=== PATIENT | female | born 1930 | race Caucasian/White ===

== ENCOUNTER 2017-12-01 13:51 | Inpatient (IN) | payer MEDICARE ==
[2017-12-01] MEDS ORDERED: AMLODIPINE PO (14:57)
[2017-12-01] MEDS ORDERED: FURO80TA3 PO (14:57)
[2017-12-01] MEDS ORDERED: MIRT15TA3 PO (14:57)
[2017-12-01] MEDS ORDERED: VALSARTAN PO (14:57)
[2017-12-01] MEDS ORDERED: LEVO100T5 PO (14:57)
[2017-12-01] MEDS ORDERED: CHOL4POW2 PO (14:57)
[2017-12-01] MEDS ORDERED: OLAN5TAB5 PO (14:57)
[2017-12-01] MEDS ORDERED: QUET25TA5 PO (14:57)
[2017-12-01] MEDS ORDERED: LOPE2TAB56 PO (14:57)
[2017-12-01] MEDS ORDERED: ACET500T68 PO (14:57)
[2017-12-01] MEDS ORDERED: OLAN5TAB9 PO (14:57)
[2017-12-01] MEDS ORDERED: FURO40TA4 PO (14:57)
[2017-12-01] MEDS ORDERED: POTA20TA4 PO (14:57)
[2017-12-01] MEDS ORDERED: HYDROCHLOROTHIAZIDE PO (14:57)
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
[2017-12-01] MEDS ORDERED: METHYL SALICYLATE/MENTHOL TOPICAL OINTMENT 29GM TUBE. TP PRN (22:45)
[2017-12-01] MEDS ORDERED: MAGNESIUM HYDROXIDE 2,400 MG/30 ML ORAL.SUSP. PO PRN (22:45)
[2017-12-01] MEDS ORDERED: MAG HYDROX/AL HYDROX/SIMETH 30 ML ORAL.SUSP PO PRN (22:45)
[2017-12-01] MEDS ORDERED: ACETAMINOPHEN 325 MG TABLET PO PRN (22:45)
[2017-12-01] MEDS ORDERED: VALS80TA3 PO (23:08)
[2017-12-01] MEDS ORDERED: AMLO2.5T PO (23:08)
[2017-12-01] MEDS ORDERED: MIRTAZAPINE 7.5 MG TABLET. PO SCH (23:30)
[2017-12-02 06:04] VITALS: BP 116/68
[2017-12-02] MEDS ORDERED: ACETAMINOPHEN 500 MG TABLET PO PRN (07:45)
[2017-12-02] MEDS ORDERED: LEVOTHYROXINE 100 MCG TABLET PO SCH (08:00)
[2017-12-02 08:38] LABS: BASO # 0.1 x10^3/uL (0.0-0.2); BASO % 1 % (0-3); EOS # 0.1 x10^3/uL (0.0-0.7); EOS % 1 % (0-3); HEMATOCRIT 41.2 % (36.0-47.0); HEMOGLOBIN 13.6 g/dL (12.0-15.5); LYMPH # 1.1 x10^3/uL (1.0-4.8); LYMPH % 15 % (24-48); MEAN CORPUSCULAR HEMOGLOBIN 29 pg (25-35); MEAN CORPUSCULAR HGB CONC 33 g/dL (31-37); MEAN CORPUSCULAR VOLUME 89 fL (79-100); MONO # 0.5 x10^3/uL (0.0-1.1); MONO % 6 % (0-9); NEUT # 5.7 x10^3uL (1.8-7.7); NEUT % 77 % (31-73); PLATELET COUNT 203 x10^3/uL (140-400); RED BLOOD COUNT 4.64 x10^6/uL (3.50-5.40); RED CELL DISTRIBUTION WIDTH 16.4 % (11.5-14.5); WHITE BLOOD COUNT 7.4 x10^3/uL (4.0-11.0)
[2017-12-02 08:47] LABS: ALBUMIN 2.8 g/dL (3.4-5.0); CALCIUM 8.6 mg/dL (8.5-10.1); CREATININE 2.6 mg/dL (0.6-1.0); GFR 17.5; MAGNESIUM 1.7 mg/dL (1.8-2.4); POTASSIUM 4.4 mmol/L (3.5-5.1); TOTAL BILIRUBIN 0.3 mg/dL (0.2-1.0); TOTAL PROTEIN 5.7 g/dL (6.4-8.2)
[2017-12-02] MEDS ORDERED: LOSARTAN 50 MG TABLET. PO SCH (09:00)
[2017-12-02] MEDS ORDERED: amLODIPine BESYLATE 2.5 MG TABLET PO SCH (09:00)
[2017-12-02] MEDS ORDERED: CHOLESTYRAMINE/ASPARTAME 4 GM PACKET PO SCH (09:00)
--- NOTE | 2017-12-02 09:15 | NUR ---
Behavior Intervention Response and Plan: BIRP Note: Behavior: Assumed Care of patient, patient located in Day Room at shift change. Patient exhibited the following behavior Disorganized, Resistive, Demanding. Brief assessment on rounds of vital signs, medication needs, lab studies, and pain. Treatment plan problems 1 & 2. Intervention: Patient assessed and the following interventions initiated safety checks 15 Minute Checks Cognitive Assessment , Head to toe Assessment , Medications. Response: After interactions and interventions patient responded in the following manner, Calm , Appropriate ,Compliant. Continue to assess behaviors and condition will continue to monitor throughout the shift as needed. Patient educated on ADL's, and hand hygiene. 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 Continue to assess patient for changes in above assessment. Monitor for medication needs, pain, and safety concerns. Hourly rounding performed to ensure safe environment.
[2017-12-02 10:36] LABS: THYROID STIM HORMONE (TSH) 59.56 uIU/mL (0.358-3.740)
[2017-12-02 15:45] VITALS: BP 132/81
[2017-12-02] MEDS ORDERED: QUEtiapine 25 MG TABLET. PO SCH (16:00)
[2017-12-02 17:07] LABS: HEMOGLOBIN A1C 5.2 % (4.8-5.6); T3 TOTAL 32 ng/dL (71-180); THYROXINE 4.6 ug/dL (4.5-12.0)
--- NOTE | 2017-12-02 18:48 | EKG ---
[address] [address] Test Date: 2017-12-02 Test Time: 18:43:41 Pat Name: JAH DANIELS Department: Room: [address] [place] [address] Gender: F Printing Press Operator: JULIANNA : 1930 Requested By: BERNICE MEDEL Order Number: [id number] Reading MD: Tremayne Nayak MD Measurements Intervals [place] Rate: 88 P: 82 HI: 150 QRS: 81 QRSD: 102 T: 74 QT: 406 QTc: 495 Interpretive Statements SINUS RHYTHM Electronically Signed On 12-04-2017 10:02:01 CONFIGURATION MANAGEMENT ARCHITECT by Tremayne Nayak MD
[2017-12-02 18:54] LABS: BASO # 0.1 x10^3/uL (0.0-0.2); BASO % 1 % (0-3); EOS % 1 % (0-3); HEMATOCRIT 38.7 % (36.0-47.0); HEMOGLOBIN 12.8 g/dL (12.0-15.5); LYMPH % 14 % (24-48); MEAN CORPUSCULAR HEMOGLOBIN 29 pg (25-35); MEAN CORPUSCULAR HGB CONC 33 g/dL (31-37); MEAN CORPUSCULAR VOLUME 88 fL (79-100); MONO # 0.5 x10^3/uL (0.0-1.1); MONO % 6 % (0-9); NEUT # 5.7 x10^3uL (1.8-7.7); NEUT % 78 % (31-73); PLATELET COUNT 212 x10^3/uL (140-400); RED BLOOD COUNT 4.41 x10^6/uL (3.50-5.40); RED CELL DISTRIBUTION WIDTH 15.8 % (11.5-14.5); WHITE BLOOD COUNT 7.3 x10^3/uL (4.0-11.0)
--- NOTE | 2017-12-02 18:56 | PDOC ---
Exam Note: Rodríguez Note: Please also refer to the separate dictated note~for this date of service dictated separately.~Patient seen individually. Discussed the patient with Nursing staff reviewed the chart.~Reviewed interim history and current functioning. Reviewed vital signs,~Labs/ Radiology~and current medications noted below. Continue current treatment with the changes noted in the dictated addendum note Assessment: Vital Signs: Vital Signs Date Time Temp Pulse Resp B/P (MAP) Pulse Ox O2 Delivery O2 Flow Rate FiO2 12/02/17 15:45 97.6 86 18 132/81 (98) 97 I&O Intake and Output 12/02/17 07:00 Intake Total 0 ml Balance 0 ml Intake Oral 0 ml Labs: Laboratory Tests Test 12/02/17 06:57 12/02/17 18:16 White Blood Count 7.4 x10^3/uL (4.0-11.0) Red Blood Count 4.64 x10^6/uL (3.50-5.40) Hemoglobin 13.6 g/dL (12.0-15.5) Hematocrit 41.2 % (36.0-47.0) Mean Corpuscular Volume 89 fL (79-100) Mean Corpuscular Hemoglobin 29 pg (25-35) Mean Corpuscular Hemoglobin Concent 33 g/dL (31-37) Red Cell Distribution Width 16.4 % (11.5-14.5) H Platelet Count 203 x10^3/uL (140-400) Neutrophils (%) (Auto) 77 % (31-73) H Lymphocytes (%) (Auto) 15 % (24-48) L Monocytes (%) (Auto) 6 % (0-9) Eosinophils (%) (Auto) 1 % (0-3) Basophils (%) (Auto) 1 % (0-3) Neutrophils # (Auto) 5.7 x10^3uL (1.8-7.7) Lymphocytes # (Auto) 1.1 x10^3/uL (1.0-4.8) Monocytes # (Auto) 0.5 x10^3/uL (0.0-1.1) Eosinophils # (Auto) 0.1 x10^3/uL (0.0-0.7) Basophils # (Auto) 0.1 x10^3/uL (0.0-0.2) Sodium Level 145 mmol/L (136-145) Potassium Level 4.4 mmol/L (3.5-5.1) Chloride Level 112 mmol/L (98-107) H Carbon Dioxide Level 17 mmol/L (21-32) L Anion Gap 16 (6-14) H Blood Urea Nitrogen 40 mg/dL (7-20) H Creatinine 2.6 mg/dL (0.6-1.0) H Estimated GFR (Cockcroft-Gault) 17.5 BUN/Creatinine Ratio 15 (6-20) Glucose Level 59 mg/dL (70-99) L Hemoglobin A1c 5.2 % (4.8-5.6) Calcium Level 8.6 mg/dL (8.5-10.1) Magnesium Level 1.7 mg/dL (1.8-2.4) L Iron Level 32 ug/dL (50-170) L Total Iron Binding Capacity 194 ug/dL (250-450) L Iron Saturation 16 % (15-34) Total Bilirubin 0.3 mg/dL (0.2-1.0) Aspartate Amino Transferase (AST) 24 U/L (15-37) Alanine Aminotransferase (ALT) 20 U/L (14-59) Alkaline Phosphatase 82 U/L (46-116) Total Protein 5.7 g/dL (6.4-8.2) L Albumin 2.8 g/dL (3.4-5.0) L Albumin/Globulin Ratio 1.0 (1.0-1.7) Triglycerides Level 139 mg/dL (0-150) Cholesterol Level 190 mg/dL (0-200) LDL Cholesterol, Calculated 108 mg/dL (0-100) H VLDL Cholesterol, Calculated 27 mg/dL (0-40) Non-HDL Cholesterol Calculated 135 mg/dL (0-129) H HDL Cholesterol 55 mg/dL (40-60) Cholesterol/HDL Ratio 3.0 Thyroid Stimulating Hormone (TSH) 59.560 uIU/mL (0.358-3.740) Thyroxine (T4) 4.6 ug/dL (4.5-12.0) Total Triiodothyronine (TT3) 32 ng/dL (71-180) L Rapid Plasma Reagin Pending Glucose (Fingerstick) 123 mg/dL (70-99) H Current Medications: Meds: Current Medications Acetaminophen (Tylenol) 650 mg PRN Q6HRS PRN PO PAIN / TEMP; Start 12/01/17 at 22:45; Stop 12/02/17 at 07:51; Status DC Multi-Ingredient Ointment (Analgesic [place]) 1 tammy PRN QID PRN TP MUSCLE PAIN; Start 12/01/17 at 22:45 Al Hydroxide/Mg Hydroxide (Mylanta Plus Xs) 15 ml PRN AFTMEALHC PRN PO DYSPEPSIA; Start 12/01/17 at 22:45 Magnesium Hydroxide (Milk Of Magnesia) 2,400 mg PRN QHS PRN PO CONSTIPATION; Start 12/01/17 at 22:45 Mirtazapine (Remeron) 7.5 mg HS PO ; Start 12/01/17 at 23:30 Olanzapine (ZyPREXA ZYDIS) 2.5 mg PRN BID PRN PO ANXIETY / AGITATION; Start 11/06 at 23:30 Olanzapine (ZyPREXA ZYDIS) 2.5 mg DAILY16 PO Last administered on 12/02/17at 16: 49; Start 12/02/17 at 16:00 Quetiapine Fumarate (SEROquel) 25 mg 1600 PO Last administered on 12/02/17at 16: 49; Start 12/02/17 at 16:00 Acetaminophen (Tylenol) 500 mg PRN Q4HRS PRN PO PAIN / TEMP; Start 12/02/17 at 07:45 Amlodipine Besylate (Norvasc) 2.5 mg DAILY PO Last administered on 12/02/17at 09 :00; Start 12/02/17 at 09:00 Levothyroxine Sodium (Synthroid) 100 mcg DAILYAC PO Last administered on at 09:00; Start 12/02/17 at 08:00 Cholestyramine Resin (Questran Light) 4 gm BID PO Last administered on at 09:00; Start 12/02/17 at 09:00 Losartan Potassium (Cozaar) 50 mg DAILY PO Last administered on 12/02/17at 09:00 ; Start 12/02/17 at 09:00 Active Scripts Active Reported Diovan (Valsartan) 80 Mg Tablet 80 Mg PO DAILY Amlodipine Besylate 2.5 Mg Tablet 2.5 Mg PO DAILY Levothyroxine Sodium 100 Mcg Tablet 100 Mcg PO DAILYAC Olanzapine 5 Mg Tablet 2.5 Mg PO PRN BID Zyprexa Zydis (Olanzapine) 5 Mg Tab.rapdis 2.5 Mg PO DAILY16 Seroquel (Quetiapine Fumarate) 25 Mg Tablet 25 Mg PO 1600 [Norvasc/valsart/HCTZ] 1 Tab PO Cholestyramine Packet (Cholestyramine (With Sugar)) 4 Gm Powd.pack 4 Gm PO BID Mirtazapine 15 Mg Tablet 7.5 Mg PO HS Acetaminophen 500 Mg Tablet 500-1,000 Mg PO PRN Q4HRS PRN I have reviewed the current psychotropics carefully including drug interactions. Risk benefit ratio favors no change other than as noted in my dictated progress note. Diagnosis: Problems: (1) Anxiety disorder (2) Dementia in Alzheimer's disease with delusions (3) Dementia in Alzheimer's disease with depression (4) Dementia, vascular, with delusions (5) Dementia, vascular, with depression APPLE CASIANO MD Dec 02, 2017 18:56
[2017-12-02 19:02] LABS: ALBUMIN 2.9 g/dL (3.4-5.0); ALBUMIN/GLOBULIN RATIO 0.9 (1.0-1.7); CALCIUM 8.9 mg/dL (8.5-10.1); CREATININE 3.3 mg/dL (0.6-1.0); GFR 13.3; MAGNESIUM 1.5 mg/dL (1.8-2.4); POTASSIUM 4.3 mmol/L (3.5-5.1); TOTAL BILIRUBIN 0.4 mg/dL (0.2-1.0); TOTAL PROTEIN 6.1 g/dL (6.4-8.2)
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
--- NOTE | 2017-12-02 19:28 | NUR ---
Transition Record was faxed to follow-up provider with the following elements: Reason for admission, procedures, tests, principal diagnosis, pending studies, patient instructions, 12/06 contact information for unit, phone number to obtain pending test results, plan for follow-up care, physician follow-up, advanced directive information, and medication list with dose, duration and instructions. This information was included in the following documents: History and physical, lab results, study results, progress notes, social work planning form, DC instruction form, patient visit summary, and medication reconciliation form. Date & time record transferred: [id number] December 2017 Record sent to: ICU Record discussed with/ report given to: FEDERICO Nava
--- NOTE | 2017-12-02 19:31 | NUR ---
Patient ambulated to day room after supper and sat down. She was witnessed to slump over and displayed altered mental status. Patient was assisted to the couch and laid down with her legs elevated, vital signs were obtained. Manual BP was 68/46, rapid response was called at approximately 18:20. Per rapid response protocols, IV fluids were initiated, EKG obtained, and labs drawn. Several minutes after interventions were initiated, VS were improved. Patient was transferred to ICU. MD notified of patient's situation. Patient's DPOA was called and informed.
--- NOTE | 2017-12-04 01:20 | DS ---
DATE OF DISCHARGE: 12/02/2017 DISCHARGE SUMMARY/PSYCHIATRIC PROGRESS NOTE REASON FOR ADMISSION: Please refer to the admission history for details. Briefly, the patient is an 86-year-old female, referred to us from [facility] by her primary care physician on account of increasing agitation, aggression towards peers and , psychotic within the context of her dementia. She is medically stabilized, psychiatrically unstable, referred for inpatient psychiatric stabilization. SIGNIFICANT FINDINGS AND CLINICAL COURSE: Following admission, the patient was seen daily individually by myself, medically per Dr. Lee/Dr. Sales. In fact, I saw her on 12/01/2017 when she was quite confused, paranoid with marked mood lability. Towards the evening, blood pressure was low and she was transferred to the ICU per Dr. Muro. CONDITION AT DISCHARGE: Unchanged. No CV, , pulmonary, eye, ENT system symptoms on review. Reliability is poor. MENTAL STATUS EXAM: Oriented to herself. Insight, judgment, recent and remote memory, attention, concentration, fund of knowledge poor, consistent with her diagnosis. IMPRESSION: Major neurocognitive disorder, Alzheimer vascular with depression, delusion, behavioral disturbance; anxiety disorder, unspecified; impulse control disorder, unspecified; status post pneumonia. Rest unchanged from admission. DISCHARGE MEDICATIONS: Please refer to the MRAD. Once she is medically stable in the ICU consequent to her hypotension, we would be happy to have her back on our unit to stabilize her from a psychiatric standpoint. APPLE CASIANO MD DR: NITA/jolanta JOB#: [id number] / [id number]
--- NOTE | 2017-12-04 01:46 | HP ---
ADMIT DATE: PSYCHIATRIC ADMISSION HISTORY/EVALUATION I met with the patient on the evening of 12/02/2017 for part of this evaluation. This note covers elements not covered in my initial note of 12/02/2017. IDENTIFYING DATA: The patient is an 86-year-old female with worsening dementia, initially admitted to [facility] for medical stabilization. She had been aggressive to peers and , attempts to bite, scratch and hit, has been quite delusional within the context of her dementia; referred for inpatient psychiatric stabilization by her primary care physician. CHIEF COMPLAINT: "No". HISTORY OF PRESENT ILLNESS: The patient has a history of dementia and Alzheimer's, vascular type. She has been residing at the [facility], was getting aggressive towards her and other peers at the [facility]; attempting to bite, scratch and hit. She was sent to [facility] to stabilize medically. Behaviors persisted, resulting in this referral. She has had some sleep and appetite changes. No clear history of bipolar disorder, suicidal or homicidal ideation. PAST PSYCHIATRIC HISTORY: As above. PAST MEDICAL HISTORY: Status post pneumonia, hypertension, history of follicular cancer, hypothyroidism, osteoarthritis and chronic diarrhea. Diet is regular. ALLERGIES: FOSAMAX AND SULFA. FAMILY HISTORY: Noncontributory. SOCIAL HISTORY: No alcohol, drug abuse, physical sexual or elder abuse history is noted. Not known to be a perpetrator. MENTAL STATUS EXAMINATION: Oriented to herself. Insight, judgment, recent and remote memory, attention, concentration and fund of knowledge poor, consistent with her diagnosis. IMPRESSION: Major neurocognitive disorder; Alzheimer's, vascular with depression, delusion and behavioral disturbance. Rest as above. PLAN: Admit to geropsychiatry unit at [facility]. I will see her daily from a psychiatric standpoint. Medical followup per Dr. Lee/Dr. Sales. In fact, by the time of this dictation, the patient was noted to have marked hypotension and has been transferred to the ICU per Dr. Muro, especially given her past history of pneumonia and sepsis recently. The patient has been admitted and discharged the same day, and we would be happy to have her back on the unit if clinically still indicated once she is medically stable. APPLE CASIANO MD DR: NITA/jolanta JOB#: [id number] / [id number]
== END 2017-12-02 18:45 | disposition short-term general hospital (02) | DRG 57 ==
LOC: GEROPSY 22:05
PROVIDERS: ADMIT Psychiatry & Neurology Psychiatry; ATTEND Psychiatry & Neurology Psychiatry
DX: G30.9 Alzheimer's disease, unspecified (principal); F01.51 Vascular dementia, unspecified severity, with behavioral disturbance; F02.81 Dementia in other diseases classified elsewhere, unspecified severity, with behavioral disturbance; F32.9 Major depressive disorder, single episode, unspecified; F22 Delusional disorders; E03.9 Hypothyroidism, unspecified; F41.9 Anxiety disorder, unspecified; F63.9 Impulse disorder, unspecified; I12.9 Hypertensive chronic kidney disease with stage 1 through stage 4 chronic kidney disease, or unspecified chronic kidney disease; M19.90 Unspecified osteoarthritis, unspecified site; K52.9 Noninfective gastroenteritis and colitis, unspecified; N18.9 Chronic kidney disease, unspecified; Z66 Do not resuscitate; E87.6 Hypokalemia; Z88.2 Allergy status to sulfonamides; Z88.8 Allergy status to other drugs, medicaments and biological substances; Z87.01 Personal history of pneumonia (recurrent)
CPT/HCPCS: 36415; 80053; 80061; 82306; 82607; 82947; 83036; 83540; 83550; 83735; 84436; 84443; 84480; 85025; 86593; 93005

== ENCOUNTER 2017-12-02 18:40 | Inpatient (IN) | payer MEDICARE ==
[2017-12-02] VITALS (7 sets, daily range): BP systolic 100–110; BP diastolic 42–58
[~2017-12-02] VITALS: Ht 157.5 cm; Wt 47.8 kg
[~2017-12-02 18:40] MED LIST: ACET500T68 PO; AMLO2.5T PO; AMLODIPINE PO; CHOL4POW2 PO; FURO40TA4 PO; FURO80TA3 PO; HYDROCHLOROTHIAZIDE PO; LEVO100T5 PO; LOPE2TAB56 PO; MIRT15TA3 PO; OLAN5TAB5 PO; OLAN5TAB9 PO; POTA20TA4 PO; QUET25TA5 PO; VALS80TA3 PO; VALSARTAN PO
[2017-12-02] MEDS ORDERED: MAGNESIUM HYDROXIDE 2,400 MG/30 ML ORAL.SUSP. PO PRN (20:00)
[2017-12-02] MEDS ORDERED: 0.9 % SODIUM CHLORIDE 10 ML DISP.SYRIN. IV PRN (20:00)
[2017-12-02] MEDS: IV 1/2 NORMAL SALINE 1,000 ML IV SCH (21:12)
[2017-12-02] MEDS: DOCUSATE SODIUM 100 MG CAPSULE PO SCH (21:28)
--- NOTE | 2017-12-02 23:08 | EKG ---
[address] [address] Test Date: 2017-12-02 Test Time: 23:03:55 Pat Name: JAH DANIELS Department: Room: [place] [address] Gender: F Network Systems Administrator: AUBREE : 1930 Requested By: BERNICE MEDEL Order Number: [id number] Reading MD: Tremayne Nayak MD Measurements Intervals [place] Rate: 82 P: 39 CO: 162 QRS: 88 QRSD: 118 T: 83 QT: 412 QTc: 485 Interpretive Statements SINUS RHYTHM RBBB Electronically Signed On 12-05-2017 10:27:11 TOOTH INSPECTOR by Tremayne Nayak MD
--- NOTE | 2017-12-02 23:35 | RAD ---
EXAM: Chest one view. HISTORY: Syncope. COMPARISON: None. FINDINGS: A frontal view of the chest is obtained. A right-sided port catheter has its tip in the superior cavoatrial junction. There are surgical clips at the base of the neck. There are no confluent infiltrates. There is mild atelectasis in the costophrenic angles. There is no pneumothorax or pleural effusion. The heart is not enlarged. There are atherosclerotic calcifications of the aorta. IMPRESSION: 1. No confluent infiltrates. Electronically signed by: Mali Márquez MD (12/02/2017 11:31 PM) [id number]
[2017-12-03] VITALS (13 sets, daily range): BP systolic 93–117; BP diastolic 40–72
[2017-12-03 02:04] LABS: BILIRUBIN,URINE MOD (NEG); CLARITY,URINE HAZY; GLUCOSE,URINE NEG (NEG)
[2017-12-03 02:05] LABS: NITRITE,URINE NEG (NEG); UROBILINOGEN,URINE 0.2 mg/dL (0.2 mg/dL)
[2017-12-03 02:06] LABS: BACTERIA,URINE 0 /HPF (0-FEW); COLOR,URINE AMBER; SQUAMOUS EPITHELIAL CELL,UR FEW /LPF
[2017-12-03 05:24] LABS: BASO # 0.1 x10^3/uL (0.0-0.2); BASO % 1 % (0-3); EOS # 0.1 x10^3/uL (0.0-0.7); EOS % 1 % (0-3); HEMATOCRIT 31.2 % (36.0-47.0); HEMOGLOBIN 10.7 g/dL (12.0-15.5); LYMPH # 1.3 x10^3/uL (1.0-4.8); LYMPH % 19 % (24-48); MEAN CORPUSCULAR HEMOGLOBIN 30 pg (25-35); MEAN CORPUSCULAR HGB CONC 34 g/dL (31-37); MEAN CORPUSCULAR VOLUME 87 fL (79-100); MONO # 0.6 x10^3/uL (0.0-1.1); MONO % 9 % (0-9); NEUT # 4.6 x10^3uL (1.8-7.7); NEUT % 70 % (31-73); PLATELET COUNT 159 x10^3/uL (140-400); RED CELL DISTRIBUTION WIDTH 15.9 % (11.5-14.5); WHITE BLOOD COUNT 6.6 x10^3/uL (4.0-11.0)
[2017-12-03 05:31] LABS: CREATININE 2.5 mg/dL (0.6-1.0); GFR 18.3
[2017-12-03] MEDS: DOCUSATE SODIUM 100 MG CAPSULE PO SCH (08:56)
[2017-12-03] MEDS: IV 1/2 NORMAL SALINE 1,000 ML IV SCH (10:23)
--- NOTE | 2017-12-03 13:10 | PDOC1 ---
History of Present Illness Reason for Visit: Syncope History of Present Illness Pt was just admitted to the [facility] unit yesterday for dementia w/ behavioral disturbances. I saw her at about 1620 yesterday afternoon, please see H&P dated 12/02 for further details. After dinner, she became slumped over and had a low blood pressure, though she never lost consciousness. A rapid response was called, and pt was transferred to the ICU for further monitoring. After a small bolus of fluids pt's BP was back to normal and she was at her baseline. She has not had any episodes overnight. I suspect that she has had either a vasovagal episode or became hypotensive due to the medications given to her prior to dinner (Seroquel and Zyprexa). I cannot determine which is which; however, I do not recommend that she be given that combination again. We will adjust some of her BP meds to reduce risk of vagal response or orthostatic hypotension. Pt to be transferred back to [facility] unit today. Chief Complaint: Syncope Allergies: Coded Allergies: Sulfa (Sulfonamide Antibiotics) (Verified Allergy, Unknown, 12/01/17) alendronate sodium (Verified Allergy, Unknown, 12/01/17) Past Medical History Cardiac: Other (See H&P dated 12/02 for PMH, PSH< FH, SH) Review of Systems Review Of Systems ROS unreliable/unobtainable due to pt's dementia. Allergies: Coded Allergies: Sulfa (Sulfonamide Antibiotics) (Verified Allergy, Unknown, 12/01/17) alendronate sodium (Verified Allergy, Unknown, 12/01/17) Medications Current Medications Sodium Chloride (Normal Saline Flush) 3 ml PRN DAILY PRN IV AFTER MEDS AND BLOOD DRAWS; Start 12/02/17 at 20:00 Sodium Chloride 1,000 ml @ 75 mls/hr [id number] IV Last administered on at 10:23; Start 12/02/17 at 20:30; Stop 12/03/17 at 20:29 Docusate Sodium (Colace) 100 mg BID PO Last administered on 12/03/17at 08:56; Start 12/02/17 at 21:00 Magnesium Hydroxide (Milk Of Magnesia) 2,400 mg PRN Q12HR PRN PO CONSTIPATION; Start 12/02/17 at 20:00 Active Scripts Active Reported Diovan (Valsartan) 80 Mg Tablet 80 Mg PO DAILY Amlodipine Besylate 2.5 Mg Tablet 2.5 Mg PO DAILY Levothyroxine Sodium 100 Mcg Tablet 100 Mcg PO DAILYAC Olanzapine 5 Mg Tablet 2.5 Mg PO PRN BID Zyprexa Zydis (Olanzapine) 5 Mg Tab.rapdis 2.5 Mg PO DAILY16 Seroquel (Quetiapine Fumarate) 25 Mg Tablet 25 Mg PO 1600 Cholestyramine Packet (Cholestyramine (With Sugar)) 4 Gm Powd.pack 4 Gm PO BID Mirtazapine 15 Mg Tablet 7.5 Mg PO HS Acetaminophen 500 Mg Tablet 500-1,000 Mg PO PRN Q4HRS PRN Exam Vital Signs Vital Signs Date Time Temp Pulse Resp B/P (MAP) Pulse Ox O2 Delivery O2 Flow Rate FiO2 12/03/17 12:10 83 18 103/49 (67) 99 Room Air 12/03/17 06:34 98.5 General Appearance: Alert, No acute distress, Other (Redirectable, confused) HEENT: Atraumatic, PERRLA, EOMI, Mucous membr. moist/pink, Other (Neck without JVD) Respiratory: Clear to auscultation, Normal air movement Heart: Regular rate, Normal S1, Normal S2, No murmurs Abdominal: Soft, No tenderness Extremities: No edema, Normal pulses Neuro: Normal gait, Strength at 5/5 X4 ext, Normal tone, Cranial nerves 3-12 NL Psych/Mental Status: Other (Confused, frequent wandering) Assessment/Plan Assessment/Plan D/C to [facility] unit Avoid meds that would prolong QT, just to be on safe side. Adjust BP meds. Will follow pt while upstairs. COURSE Allergies Coded Allergies Type Severity Reaction Last Updated Verified Sulfa (Sulfonamide Antibiotics) Allergy Unknown 12/01/17 Yes alendronate sodium Allergy Unknown 12/01/17 Yes Laboratory Tests Test 12/02/17 20:08 12/02/17 22:55 12/03/17 01:54 12/03/17 05:05 Troponin I Quantitative 0.059 ng/mL (0-0.055) 0.054 ng/mL (0-0.055) Urine Collection Type Void Urine Color Abi Urine Clarity Hazy Urine pH 5.0 Urine Specific [place] 1.025 Urine Protein 100 mg/dl (NEG-TRACE) Urine Glucose (UA) Neg mg/dL (NEG) Urine Ketones (Stick) 15 mg/dL (NEG) Urine Blood Neg (NEG) Urine Nitrite Neg (NEG) Urine Bilirubin Mod (NEG) Urine Urobilinogen Dipstick 0.2 mg/dL (0.2 mg/dL) Urine Leukocyte Esterase Small (NEG) Urine RBC 11-20 /HPF (0-2) Urine WBC 11-20 /HPF (0-4) Urine Squamous Epithelial Cells Few /LPF Urine Bacteria 0 /HPF (0-FEW) White Blood Count 6.6 x10^3/uL (4.0-11.0) Red Blood Count 3.60 x10^6/uL (3.50-5.40) Hemoglobin 10.7 g/dL (12.0-15.5) Hematocrit 31.2 % (36.0-47.0) Mean Corpuscular Volume 87 fL (79-100) Mean Corpuscular Hemoglobin 30 pg (25-35) Mean Corpuscular Hemoglobin Concent 34 g/dL (31-37) Red Cell Distribution Width 15.9 % (11.5-14.5) Platelet Count 159 x10^3/uL (140-400) Neutrophils (%) (Auto) 70 % (31-73) Lymphocytes (%) (Auto) 19 % (24-48) Monocytes (%) (Auto) 9 % (0-9) Eosinophils (%) (Auto) 1 % (0-3) Basophils (%) (Auto) 1 % (0-3) Neutrophils # (Auto) 4.6 x10^3uL (1.8-7.7) Lymphocytes # (Auto) 1.3 x10^3/uL (1.0-4.8) Monocytes # (Auto) 0.6 x10^3/uL (0.0-1.1) Eosinophils # (Auto) 0.1 x10^3/uL (0.0-0.7) Basophils # (Auto) 0.1 x10^3/uL (0.0-0.2) Sodium Level 145 mmol/L (136-145) Potassium Level 4.0 mmol/L (3.5-5.1) Chloride Level 115 mmol/L (98-107) Carbon Dioxide Level 19 mmol/L (21-32) Anion Gap 11 (6-14) Blood Urea Nitrogen 41 mg/dL (7-20) Creatinine 2.5 mg/dL (0.6-1.0) Estimated GFR (Cockcroft-Gault) 18.3 Glucose Level 66 mg/dL (70-99) Calcium Level 8.0 mg/dL (8.5-10.1) Test 12/03/17 06:04 Glucose (Fingerstick) 70 mg/dL (70-99) Current Medications Medications (Trade) Dose Ordered Sig/Evelyne Route PRN Reason Start Time Stop Time Status Last Admin Dose Admin Sodium Chloride (Normal Saline Flush) 3 ml PRN DAILY PRN IV AFTER MEDS AND BLOOD DRAWS 12/02/17 20:00 Sodium Chloride 1,000 ml @ 75 mls/hr [id number] IV 12/02/17 20:30 12/03/17 20:29 12/03/17 10:23 Docusate Sodium (Colace) 100 mg BID PO 12/02/17 21:00 12/03/17 08:56 Magnesium Hydroxide (Milk Of Magnesia) 2,400 mg PRN Q12HR PRN PO CONSTIPATION 12/02/17 20:00 I & O 12/03/17 00:00 Intake Total 120 ml Balance 120 ml Vital Signs Date Time Temp Pulse Resp B/P (MAP) Pulse Ox O2 Delivery O2 Flow Rate FiO2 12/03/17 12:10 83 18 103/49 (67) 99 Room Air 12/03/17 06:34 98.5 EXAM: Chest one view. HISTORY: Syncope. COMPARISON: None. FINDINGS: A frontal view of the chest is obtained. A right-sided port catheter has its tip in the superior cavoatrial junction. There are surgical clips at the base of the neck. There are no confluent infiltrates. There is mild atelectasis in the costophrenic angles. There is no pneumothorax or pleural effusion. The heart is not enlarged. There are atherosclerotic calcifications of the aorta. IMPRESSION: 1. No confluent infiltrates. EKG #1 : NSR, RVH, QTc 495 EKG #2: NSR, RVH, QTc 485 BERNICE MEDEL MD Dec 03, 2017 13:10
--- NOTE | 2017-12-03 13:13 | DISCH ---
DISCHARGE INSTRUCTIONS-DC Condition on Discharge Condition on Discharge: Stable Problems: Diet after Discharge Diet after Discharge: Regular Checks after Discharge Checks after discharge: Check blood press - daily Contacting the DRCorazon after DC Call your doctor for: If your condition worsens Follow-Up Follow up with: PCP after d/c from [facility] unit BERNICE MEDEL MD Dec 03, 2017 13:13
--- NOTE | 2017-12-03 13:21 | PDOC3 ---
Discharge Summary Discharge Summary Date of Admission Date of Admission: Dec 02, 2017 at 18:40 Admitting Diagnosis Near syncope AD w/ behavioral disturbances Hypertension w/ current hypotension Prolonged QT Date of Discharge: Dec 03, 2017 Discharge Diagnosis Near syncope AD w/ behavioral disturbances Hypertension w/ current hypotension Prolonged QT Laboratory Findings Laboratory Tests Test 12/02/17 20:08 12/02/17 22:55 12/03/17 01:54 12/03/17 05:05 Troponin I Quantitative 0.059 ng/mL (0-0.055) 0.054 ng/mL (0-0.055) Urine Collection Type Void Urine Color Abi Urine Clarity Hazy Urine pH 5.0 Urine Specific [place] 1.025 Urine Protein 100 mg/dl (NEG-TRACE) Urine Glucose (UA) Neg mg/dL (NEG) Urine Ketones (Stick) 15 mg/dL (NEG) Urine Blood Neg (NEG) Urine Nitrite Neg (NEG) Urine Bilirubin Mod (NEG) Urine Urobilinogen Dipstick 0.2 mg/dL (0.2 mg/dL) Urine Leukocyte Esterase Small (NEG) Urine RBC 11-20 /HPF (0-2) Urine WBC 11-20 /HPF (0-4) Urine Squamous Epithelial Cells Few /LPF Urine Bacteria 0 /HPF (0-FEW) White Blood Count 6.6 x10^3/uL (4.0-11.0) Red Blood Count 3.60 x10^6/uL (3.50-5.40) Hemoglobin 10.7 g/dL (12.0-15.5) Hematocrit 31.2 % (36.0-47.0) Mean Corpuscular Volume 87 fL (79-100) Mean Corpuscular Hemoglobin 30 pg (25-35) Mean Corpuscular Hemoglobin Concent 34 g/dL (31-37) Red Cell Distribution Width 15.9 % (11.5-14.5) Platelet Count 159 x10^3/uL (140-400) Neutrophils (%) (Auto) 70 % (31-73) Lymphocytes (%) (Auto) 19 % (24-48) Monocytes (%) (Auto) 9 % (0-9) Eosinophils (%) (Auto) 1 % (0-3) Basophils (%) (Auto) 1 % (0-3) Neutrophils # (Auto) 4.6 x10^3uL (1.8-7.7) Lymphocytes # (Auto) 1.3 x10^3/uL (1.0-4.8) Monocytes # (Auto) 0.6 x10^3/uL (0.0-1.1) Eosinophils # (Auto) 0.1 x10^3/uL (0.0-0.7) Basophils # (Auto) 0.1 x10^3/uL (0.0-0.2) Sodium Level 145 mmol/L (136-145) Potassium Level 4.0 mmol/L (3.5-5.1) Chloride Level 115 mmol/L (98-107) Carbon Dioxide Level 19 mmol/L (21-32) Anion Gap 11 (6-14) Blood Urea Nitrogen 41 mg/dL (7-20) Creatinine 2.5 mg/dL (0.6-1.0) Estimated GFR (Cockcroft-Gault) 18.3 Glucose Level 66 mg/dL (70-99) Calcium Level 8.0 mg/dL (8.5-10.1) Test 12/03/17 06:04 Glucose (Fingerstick) 70 mg/dL (70-99) Hospital Course Pt had a near syncopal episode last night after dinner. A rapid response was called. I suspect that pt had a vasovagal episode, though her QTC was mildly prolonged on EKG, so cannot r/o effect of medications. More likely scenario is vasovagal, however. She reportedly had not been taking her medications, then yesterday was able to take all of them, including her BP meds and antipsychotics. I have discontinued her BP meds and have recommended that we consider not using antipsychotics for the time being. Pt will be transferred back upstairs for treatment in the [facility] unit. Labs were unremarkable, she has baseline CKD. NO UTI or pneumonia identified, no evidence of sepsis. Treatment See Above Condition at Discharge: Stable Home Meds Reported Medications Valsartan (DIOVAN) 80 Mg Tablet, 80 MG PO DAILY for HYPERTENSION, SEE COMMENTS, TAB 12/01/17 Amlodipine Besylate (AMLODIPINE BESYLATE) 2.5 Mg Tablet, 2.5 MG PO DAILY for HYPERTENSION, SEE COMMENTS, TAB 12/01/17 Levothyroxine Sodium (LEVOTHYROXINE SODIUM) 100 Mcg Tablet, 100 MCG PO DAILYAC for THYROID SUPPLEMENT 12/01/17 Olanzapine (OLANZAPINE) 5 Mg Tablet, 2.5 MG PO PRN BID for ANXIETY / AGITATION, TAB 12/01/17 Olanzapine (ZYPREXA ZYDIS) 5 Mg Tab.rapdis, 2.5 MG PO DAILY16 for ANXIETY / AGITATION 12/01/17 Quetiapine Fumarate (SEROQUEL) 25 Mg Tablet, 25 MG PO 1600 for ANXIETY / AGITATION, TAB 12/01/17 Cholestyramine (With Sugar) (CHOLESTYRAMINE PACKET) 4 Gm Powd.pack, 4 GM PO BID for DIARRHEA, PKT 12/01/17 Mirtazapine (MIRTAZAPINE) 15 Mg Tablet, 7.5 MG PO HS for INSOMNIA 12/01/17 Acetaminophen (ACETAMINOPHEN) 500 Mg Tablet, 500-1000 MG PO PRN Q4HRS Y for PAIN / TEMP 12/01/17 Discontinued Reported Medications [Norvasc/valsart/HCTZ] No Conflict Check, 1 TAB PO for HTN 12/01/17 Potassium Chloride (KLOR-CON M20) 20 Meq Tab.er.prt, 20 MEQ PO BIDWMEALS for supplement, TAB.SR 12/01/17 Furosemide (FUROSEMIDE) 40 Mg Tablet, 40 MG PO DAILY@1400 for HTN, TAB 12/01/17 Furosemide (FUROSEMIDE) 80 Mg Tablet, 80 MG PO DAILY for HTN, TAB 12/01/17 Loperamide Hcl (ANTI-DIARRHEA) 2 Mg Tablet, 2 MG PO PRN Q4HRS Y for DIARRHEA, TAB 12/01/17 Inpatient Meds Current Medications Sodium Chloride (Normal Saline Flush) 3 ml PRN DAILY PRN IV AFTER MEDS AND BLOOD DRAWS; Start 12/02/17 at 20:00 Sodium Chloride 1,000 ml @ 75 mls/hr [id number] IV Last administered on at 10:23; Start 12/02/17 at 20:30; Stop 12/03/17 at 20:29 Docusate Sodium (Colace) 100 mg BID PO Last administered on 12/03/17at 08:56; Start 12/02/17 at 21:00 Magnesium Hydroxide (Milk Of Magnesia) 2,400 mg PRN Q12HR PRN PO CONSTIPATION; Start 12/02/17 at 20:00 Active Scripts Active Reported Diovan (Valsartan) 80 Mg Tablet 80 Mg PO DAILY Amlodipine Besylate 2.5 Mg Tablet 2.5 Mg PO DAILY Levothyroxine Sodium 100 Mcg Tablet 100 Mcg PO DAILYAC Olanzapine 5 Mg Tablet 2.5 Mg PO PRN BID Zyprexa Zydis (Olanzapine) 5 Mg Tab.rapdis 2.5 Mg PO DAILY16 Seroquel (Quetiapine Fumarate) 25 Mg Tablet 25 Mg PO 1600 Cholestyramine Packet (Cholestyramine (With Sugar)) 4 Gm Powd.pack 4 Gm PO BID Mirtazapine 15 Mg Tablet 7.5 Mg PO HS Acetaminophen 500 Mg Tablet 500-1,000 Mg PO PRN Q4HRS PRN Activity: as tolerated Diet: Regular Consulting Physician: APPLE CASIANO MD Consulting Speciality: Psychology Follow-up Plan Per [facility] unit BERNICE MEDEL MD Dec 03, 2017 13:20
[2017-12-04] MEDS ORDERED: MAG-83 PO (11:03)
[2017-12-04] MEDS ORDERED: MAGN2400 PO (11:04)
[2017-12-04] MEDS ORDERED: METH29OI TP (11:05)
== END 2017-12-03 17:41 | DRG 312 ==
LOC: ICU 18:40 → EEVIPCON 18:40
PROVIDERS: ADMIT Family Medicine; ATTEND Family Medicine
DX: R55 Syncope and collapse (principal); I95.9 Hypotension, unspecified; G30.9 Alzheimer's disease, unspecified; F02.81 Dementia in other diseases classified elsewhere, unspecified severity, with behavioral disturbance; J98.11 Atelectasis; I45.81 Long QT syndrome; F41.9 Anxiety disorder, unspecified; G47.00 Insomnia, unspecified; I12.9 Hypertensive chronic kidney disease with stage 1 through stage 4 chronic kidney disease, or unspecified chronic kidney disease; I70.0 Atherosclerosis of aorta; K59.00 Constipation, unspecified; R19.7 Diarrhea, unspecified; N18.9 Chronic kidney disease, unspecified; Z79.899 Other long term (current) drug therapy; Z88.2 Allergy status to sulfonamides; Z88.8 Allergy status to other drugs, medicaments and biological substances
CPT/HCPCS: 36415; 71045; 80048; 81001; 82947; 84484; 85025; 87086; 87641; 93005; J7030

== ENCOUNTER 2017-12-03 15:00 | Inpatient (IN) | payer MEDICARE, BC ==
[~2017-12-03] VITALS: Ht 157.5 cm; Wt 47.6 kg
[2017-12-03 16:37] VITALS: BP 108/70
[2017-12-03] MEDS ORDERED: ACETAMINOPHEN 500 MG TABLET PO PRN (17:00)
[2017-12-03] MEDS ORDERED: METHYL SALICYLATE/MENTHOL TOPICAL OINTMENT 29GM TUBE. TP PRN (17:00)
[2017-12-03] MEDS ORDERED: MAG HYDROX/AL HYDROX/SIMETH 30 ML ORAL.SUSP PO PRN (17:00)
[2017-12-03] MEDS ORDERED: MAGNESIUM HYDROXIDE 2,400 MG/30 ML ORAL.SUSP. PO PRN (17:00)
[2017-12-03] MEDS: CHOLESTYRAMINE/ASPARTAME 4 GM PACKET PO SCH (19:37)
--- NOTE | 2017-12-03 19:51 | PDOC ---
Exam Note: Rodríguez Note: Please also refer to the separate dictated note~for this date of service dictated separately.~Patient seen individually. Discussed the patient with Nursing staff reviewed the chart.~Reviewed interim history and current functioning. Reviewed vital signs,~Labs/ Radiology~and current medications noted below. Continue current treatment with the changes noted in the dictated addendum note Assessment: Vital Signs: Vital Signs Date Time Temp Pulse Resp B/P (MAP) Pulse Ox O2 Delivery O2 Flow Rate FiO2 12/03/17 16:37 97.8 87 20 108/70 (83) 98 Current Medications: Meds: Current Medications Acetaminophen (Tylenol) 500 mg PRN Q4HRS PRN PO PAIN / TEMP; Start 12/03/17 at 17:00 Levothyroxine Sodium (Synthroid) 100 mcg DAILYAC PO ; Start 12/04/17 at 07:30 Mirtazapine (Remeron) 7.5 mg QHS PO Last administered on 12/03/17at 19:37; Start 12/03/17 at 21:00 Cholestyramine Resin (Questran Light) 4 gm BID PO Last administered on at 19:37; Start 12/03/17 at 21:00 Multi-Ingredient Ointment (Analgesic [place]) 1 tammy PRN QID PRN TP MUSCLE PAIN; Start 12/03/17 at 17:00 Al Hydroxide/Mg Hydroxide (Mylanta Plus Xs) 15 ml PRN AFTMEALHC PRN PO DYSPEPSIA; Start 12/03/17 at 17:00 Magnesium Hydroxide (Milk Of Magnesia) 2,400 mg PRN QHS PRN PO CONSTIPATION; Start 12/03/17 at 17:00 Active Scripts Active Reported Diovan (Valsartan) 80 Mg Tablet 80 Mg PO DAILY Amlodipine Besylate 2.5 Mg Tablet 2.5 Mg PO DAILY Levothyroxine Sodium 100 Mcg Tablet 100 Mcg PO DAILYAC Olanzapine 5 Mg Tablet 2.5 Mg PO PRN BID Zyprexa Zydis (Olanzapine) 5 Mg Tab.rapdis 2.5 Mg PO DAILY16 Seroquel (Quetiapine Fumarate) 25 Mg Tablet 25 Mg PO 1600 Cholestyramine Packet (Cholestyramine (With Sugar)) 4 Gm Powd.pack 4 Gm PO BID Mirtazapine 15 Mg Tablet 7.5 Mg PO HS Acetaminophen 500 Mg Tablet 500-1,000 Mg PO PRN Q4HRS PRN I have reviewed the current psychotropics carefully including drug interactions. Risk benefit ratio favors no change other than as noted in my dictated progress note. Diagnosis: Problems: (1) Anxiety disorder (2) Dementia, vascular, with depression (3) Dementia, vascular, with delusions (4) Dementia in Alzheimer's disease with depression (5) Dementia in Alzheimer's disease with delusions (6) Syncope, near APPLE CASIANO MD Dec 03, 2017 19:51
[2017-12-03] MEDS ORDERED: MIRTAZAPINE 7.5 MG TABLET. PO SCH (21:00)
[2017-12-04 06:14] VITALS: BP 104/72
[2017-12-04] MEDS ORDERED: LEVOTHYROXINE 100 MCG TABLET PO SCH (07:30)
[2017-12-04 08:50] VITALS: BP 134/64
[2017-12-04] MEDS: CHOLESTYRAMINE/ASPARTAME 4 GM PACKET PO SCH (09:05)
--- NOTE | 2017-12-04 09:50 | RAD ---
Pelvis with left hip, 3 views, 12/04/2017: History: Fall, hip pain The bony structures are demineralized. There is a comminuted intertrochanteric fracture of the left hip. There is a slight varus deformity at the fracture site. There are mild degenerative changes at both hips. Aortic calcific plaquing is noted. IMPRESSION: 1. Demineralization. 2. Acute intertrochanteric fracture of the left hip.
[2017-12-04] MEDS ORDERED: MAG-83 PO (11:03)
[2017-12-04] MEDS ORDERED: MAGN2400 PO (11:04)
[2017-12-04] MEDS ORDERED: METH29OI TP (11:05)
--- NOTE | 2017-12-04 19:40 | PDOC ---
Exam Note: Rodríguez Note: Please also refer to the separate dictated note~for this date of service dictated separately.~Patient seen individually. Discussed the patient with Nursing staff reviewed the chart.~Reviewed interim history and current functioning. Reviewed vital signs,~Labs/ Radiology~and current medications noted below. Continue current treatment with the changes noted in the dictated addendum note Assessment: Vital Signs: Vital Signs Date Time Temp Pulse Resp B/P (MAP) Pulse Ox O2 Delivery O2 Flow Rate FiO2 12/04/17 08:50 74 134/64 (87) 99 12/04/17 06:14 97.4 20 Room Air I&O Intake and Output 12/04/17 06:59 Intake Total 120 ml Balance 120 ml Intake Oral 120 ml # Bowel Movements 1 Current Medications: Meds: Current Medications Acetaminophen (Tylenol) 500 mg PRN Q4HRS PRN PO PAIN / TEMP Last administered on 12/04/17at 09:11; Start 12/03/17 at 17:00; Stop 12/04/17 at 11:51; Status DC Levothyroxine Sodium (Synthroid) 100 mcg DAILYAC PO Last administered on at 09:05; Start 12/04/17 at 07:30; Stop 12/04/17 at 11:51; Status DC Mirtazapine (Remeron) 7.5 mg QHS PO Last administered on 12/03/17at 19:37; Start 12/03/17 at 21:00; Stop 12/04/17 at 11:51; Status DC Cholestyramine Resin (Questran Light) 4 gm BID PO Last administered on at 09:05; Start 12/03/17 at 21:00; Stop 12/04/17 at 11:51; Status DC Multi-Ingredient Ointment (Analgesic [place]) 1 nik PRN QID PRN TP MUSCLE PAIN; Start 12/03/17 at 17:00; Stop 12/04/17 at 11:51; Status DC Al Hydroxide/Mg Hydroxide (Mylanta Plus Xs) 15 ml PRN AFTMEALHC PRN PO DYSPEPSIA; Start 12/03/17 at 17:00; Stop 12/04/17 at 11:51; Status DC Magnesium Hydroxide (Milk Of Magnesia) 2,400 mg PRN QHS PRN PO CONSTIPATION; Start 12/03/17 at 17:00; Stop 12/04/17 at 11:51; Status DC Active Scripts Active Reported Analgesic [place] (Methyl Salicylate/Menthol) 28 Gm Oint...g. 1 Nik TP PRN QID PRN LAST DOSE GIVEN: DATE: TIME: NEXT DOSE DUE: DATE: TIME: Milk Of Magnesia (Magnesium Hydroxide) 2,400 Mg/10 Ml Oral.susp 2,400 Mg PO PRN QHS PRN LAST DOSE GIVEN: DATE: TIME: NEXT DOSE DUE: DATE: TIME: Adv Antacid-[place] Liquid (Mag Hydrox/Al Hydrox/Simeth) 355 Ml Oral.susp 15 Ml PO PRN AFTMEALHC PRN LAST DOSE GIVEN: DATE: TIME: NEXT DOSE DUE: DATE: TIME: Levothyroxine Sodium 100 Mcg Tablet 100 Mcg PO DAILYAC LAST DOSE GIVEN: DATE: TIME: NEXT DOSE DUE: DATE: TIME: Cholestyramine Packet (Cholestyramine (With Sugar)) 4 Gm Powd.pack 4 Gm PO BID LAST DOSE GIVEN: DATE: TIME: NEXT DOSE DUE: DATE: TIME: Mirtazapine 15 Mg Tablet 7.5 Mg PO HS LAST DOSE GIVEN: DATE: TIME: NEXT DOSE DUE: DATE: TIME: Acetaminophen 500 Mg Tablet 500 Mg PO PRN Q4HRS PRN LAST DOSE GIVEN: DATE: TIME: NEXT DOSE DUE: DATE: TIME: I have reviewed the current psychotropics carefully including drug interactions. Risk benefit ratio favors no change other than as noted in my dictated progress note. Diagnosis: Problems: (1) Fracture, intertrochanteric, left femur (2) Hip fracture (3) Dementia in Alzheimer's disease with delusions (4) Dementia in Alzheimer's disease with depression (5) Dementia, vascular, with delusions (6) Dementia, vascular, with depression (7) Anxiety disorder APPLE CASIANO MD Dec 04, 2017 19:40
--- NOTE | 2017-12-04 22:24 | HP ---
ADMIT DATE: 12/03/2017 This covers elements not covered in my initial note 12/03/2017. IDENTIFYING DATA: The patient is an 86-year-old female who initially presented to us from [facility] referred by her primary care physician, Dr. Doyle Whtie on account of worsening agitation, confusion, irritability, mood lability and being aggressive with others at the hospital. Behaviors were unmanageable. She is quite confused, had failed outpatient psychiatric interventions resulting in this referral. She was an inpatient on the unit briefly and then was hypotensive, transferred to the ICU per Dr. Muro, medically stabilized and I have discussed with Dr. Muro on 12/03/2017 as well. Behaviors persisted and she returns back to Unit for further psychiatric stabilization. CHIEF COMPLAINT: "I'm okay." The patient is again quite animated, very confused. HISTORY OF PRESENT ILLNESS: The patient has a history of dementia, Alzheimer's vascular type. She has been increasingly paranoid, angry, aggressive, irritable, was physically combative with her . Some of this behavior has persisted at [facility] despite her medical stabilization resulting in the initial referral. No clear history of bipolar disorder, suicidal or homicidal ideation. PAST PSYCHIATRIC HISTORY: As above. MEDICAL HISTORY: Positive for hypotension, hypokalemia, chronic renal insufficiency, status post pneumonia. ALLERGIES: FOSAMAX, SULFA. DIET: Regular. FAMILY HISTORY: Noncontributory. SOCIAL HISTORY: No history of alcohol, drug abuse, physical, sexual or elder abuse history is noted. She is not known to be a perpetrator. Reaction to hospitalization, the patient oblivious of this asset, supportive . MENTAL STATUS EXAM: The patient was seen individually evening of 12/03/2017. She is oriented to herself, ambulating on her own, pleasant, verbal, smiling. Insight, judgment, recent and remote memory, attention, concentration, fund of knowledge poor, consistent with her diagnosis. No active suicidal or homicidal ideation. IMPRESSION: Major neurocognitive disorder; Alzheimer, vascular with depression; delusion; behavioral disturbance; anxiety disorder, unspecified; impulse control disorder, unspecified; status post hypovolemia, stabilized. Rest unchanged as above. PLAN: Admit to Geropsychiatry Unit at [facility]. I will see the patient daily individually from a psychiatric standpoint, medical followup per Dr. Lee/Dr. Sales. Continue the patient on her current psychotropics per Dr. Muro, in his discussion with me suggested not using any atypical antipsychotics and we will try and avoid it. MAN Julia CASIANO MD DR: NITA/jolanta JOB#: [id number] / [id number]
--- NOTE | 2017-12-05 17:53 | DS ---
DATE OF DISCHARGE: 12/04/2017 REASON FOR ADMISSION: Please refer to the admission history for details. Briefly, the patient is an 86-year-old female, initially admitted to us from [facility] on account of worsening confusion, agitation, mood lability, aggression, failure of outpatient psychiatric interventions. She was hospitalized with us for a day and then transferred to the medical/surgical floor per Dr. Lee for medical stabilization. The dehydration improved. She was much more awake, alert, appeared somewhat less confused, but behaviors were still a problem with paranoia, agitation, mood lability and she returns back to us for further psychiatric stabilization. SIGNIFICANT FINDINGS AND CLINICAL COURSE: Following admission, the patient was seen daily individually by myself for the one day she was here before she fell, fractured hip and was transferred to [address] [place] [address] and then planned transfer to [place] for treatment of her hip fracture. She remained confused. CONDITION AT DISCHARGE: Unchanged from admission from a psychiatric standpoint, though she did sustain a hip fracture status post fall on our unit. FINAL DIAGNOSES: Major neurocognitive disorder, Alzheimer's, vascular with depression, delusion, behavioral disturbance; anxiety disorder, unspecified; impulse control disorder, unspecified. Status post hip fracture. Rest unchanged from admission. DISCHARGE MEDICATIONS: Please refer to the [facility]AD. DISCHARGE INSTRUCTIONS: Psychiatric medical followup post medical stabilization and treatment of her hip fracture. APPLE CASIANO MD DR: NITA/jolanta JOB#: [id number] / [id number]
== END 2017-12-04 11:48 | disposition short-term general hospital (02) | DRG 56 ==
LOC: GEROPSY 15:00 → EEVIPCON 15:00
PROVIDERS: ADMIT Psychiatry & Neurology Psychiatry; ATTEND Psychiatry & Neurology Psychiatry
DX: G30.9 Alzheimer's disease, unspecified (principal); S72.142A Displaced intertrochanteric fracture of left femur, initial encounter for closed fracture; F01.51 Vascular dementia, unspecified severity, with behavioral disturbance; F22 Delusional disorders; F02.81 Dementia in other diseases classified elsewhere, unspecified severity, with behavioral disturbance; E86.0 Dehydration; F32.9 Major depressive disorder, single episode, unspecified; F41.9 Anxiety disorder, unspecified; F63.9 Impulse disorder, unspecified; N18.9 Chronic kidney disease, unspecified; Z87.01 Personal history of pneumonia (recurrent); Z87.81 Personal history of (healed) traumatic fracture; R55 Syncope and collapse; W19.XXXA Unspecified fall, initial encounter; Y93.89 Activity, other specified; Y92.89 Other specified places as the place of occurrence of the external cause; Y99.8 Other external cause status
CPT/HCPCS: 73502

== ENCOUNTER 2017-12-04 11:49 | Inpatient (IN) | payer MEDICARE ==
[~2017-12-04] VITALS: Ht 165.1 cm; Wt 47.6 kg
[~2017-12-04 11:49] MED LIST changes: +MAG-83 PO; +MAGN2400 PO; +METH29OI TP
[2017-12-04] MEDS ORDERED: NON FORMULARY ITEM (Magnesium Hydroxide (Milk Of Magnesia) 2,400 MG) PO PRN (12:45)
[2017-12-04] MEDS ORDERED: MAG HYDROX/AL HYDROX/SIMETH 30 ML ORAL.SUSP PO PRN (12:45)
[2017-12-04] MEDS ORDERED: METHYL SALICYLATE/MENTHOL TOPICAL OINTMENT 29GM TUBE. TP PRN (12:45)
[2017-12-04 12:59] VITALS: BP 146/82
[2017-12-04] MEDS: ACETAMINOPHEN 500 MG TABLET PO PRN ×2 (13:11→18:01)
[2017-12-04] MEDS ORDERED: MAGNESIUM HYDROXIDE 2,400 MG/30 ML ORAL.SUSP. PO PRN (13:15)
[2017-12-04 14:49] VITALS: BP 123/68
[2017-12-04 16:56] LABS: HEMATOCRIT 30.1 % (36.0-47.0); HEMOGLOBIN 10.1 g/dL (12.0-15.5); RED BLOOD COUNT 3.43 x10^6/uL (3.50-5.40); RED CELL DISTRIBUTION WIDTH 16.1 % (11.5-14.5); WHITE BLOOD COUNT 8.9 x10^3/uL (4.0-11.0)
[2017-12-04 17:13] LABS: ALBUMIN 2.5 g/dL (3.4-5.0); ALBUMIN/GLOBULIN RATIO 0.9 (1.0-1.7); CREATININE 2.7 mg/dL (0.6-1.0); GFR 16.7; POTASSIUM 4.5 mmol/L (3.5-5.1); TOTAL BILIRUBIN 0.4 mg/dL (0.2-1.0); TOTAL PROTEIN 5.2 g/dL (6.4-8.2)
--- NOTE | 2017-12-04 18:38 | NUR ---
Pt transferred to [facility] for ortho care. Pt left via EMS; had right port accessed. FEDERICO Correa called and notified of transfer.
[2017-12-04] MEDS ORDERED: MIRTAZAPINE 15 MG TABLET PO SCH (21:00)
[2017-12-04] MEDS ORDERED: CHOLESTYRAMINE/ASPARTAME 4 GM PACKET PO SCH (21:00)
[2017-12-05] MEDS ORDERED: LEVOTHYROXINE 100 MCG TABLET PO SCH (07:30)
== END 2017-12-04 18:40 | disposition short-term general hospital (02) | DRG 535 ==
LOC: 1 SOUTH 11:49
PROVIDERS: ADMIT Internal Medicine; ATTEND Internal Medicine
DX: S72.142A Displaced intertrochanteric fracture of left femur, initial encounter for closed fracture (principal); E43 Unspecified severe protein-calorie malnutrition; N18.4 Chronic kidney disease, stage 4 (severe); R64 Cachexia; E03.9 Hypothyroidism, unspecified; I10 Essential (primary) hypertension; K52.9 Noninfective gastroenteritis and colitis, unspecified; W18.39XA Other fall on same level, initial encounter; Y93.89 Activity, other specified; Y92.89 Other specified places as the place of occurrence of the external cause; Y99.8 Other external cause status; Z85.72 Personal history of non-Hodgkin lymphomas; Z88.2 Allergy status to sulfonamides; Z88.8 Allergy status to other drugs, medicaments and biological substances
CPT/HCPCS: 36415; 80053; 85027